=== PATIENT | female | born 2000 | race Two or more races ===

== ENCOUNTER 2023-10-06 10:15 | Outpatient (CLI) | payer MEDICAID, SELFPAY ==
[2023-10-06] VITALS (8 sets, daily range): BP systolic 114–125; BP diastolic 70–84; PULSE 106–121; RESP 16; TEMP 37.4; BMI 36.3
[2023-10-06 10:35] LABS: Bilirubin Urine Negative (Negative); Blood Urine Negative (Negative); Glucose Urine UA Negative (Normal); Ketones Urine Negative (Negative); Leukocyte Esterase Urine 2+ (Negative); Nitrate Urine Negative (Negative); Protein Urine 1+ (Negative); Specific Gravity, Urine 1.016 (1.005-1.030); Urine Appearance Cloudy (CLEAR); Urine Color Yellow (Yellow); pH Urine 7.5 (5-7)
[2023-10-06 10:40] LABS: Bacteria Urine 2+ /hpf; Hyaline Casts Urine 0.81 /lpf; RBC Urine 0-2 /hpf (0-2); WBC Urine 51-100 /hpf (0-5)
[2023-10-06 10:50] LABS: Urine Creatinine 110 mg/dL (28-217)
[2023-10-06 10:52] LABS: UPRO/UCREAT Ratio 0.31 mg/mg CR; Urine Protein Random 34 mg/dL
[2023-10-06 11:01] LABS: Add Urine Culture? No; UA Slide Review UA Slide Review Perf
--- NOTE | 2023-10-06 13:51 | PC.NURSE ---
THIS TRANSMISSION ASSEMBLER TOLD HER THAT SHE COULD GO TO URGENT CARE FOR HER SORE THROAT, EAR ACHE AND SINUS ISSUES IF SHE WANTED.
== END 2023-10-06 12:30 | disposition home or self-care (01) ==
LOC: OPOB 10:20 → OBGYN 10:21
PROVIDERS: Absent Provider Family Medicine; PCP Family Medicine; Visit Provider Family Medicine
DX: O36.8190 Decreased fetal movements, unspecified trimester, not applicable or unspecified (principal); Z3A.00 Weeks of gestation of pregnancy not specified; R51.9 Headache, unspecified; J02.9 Acute pharyngitis, unspecified
CPT/HCPCS: 36415; 59025; 81001; 82570; 84156; 99211

== ENCOUNTER 2023-10-07 12:43 | Outpatient (CLI) | payer MEDICAID, SELFPAY ==
[2023-10-07 13:10] VITALS: BMI 34.5
[2023-10-07 13:32] VITALS: BP 115/82; PULSE 93
[2023-10-07 14:11] VITALS: BP 115/77; PULSE 102
[2023-10-08] VITALS (7 sets, daily range): BP systolic 108–119; BP diastolic 59–74; PULSE 103–110; RESP 16; TEMP 37.2–37.7; O2SAT 96–98
== END 2023-10-07 14:45 | disposition home or self-care (01) ==
LOC: OPOB 12:49 → OBGYN 12:49
PROVIDERS: PCP Family Medicine; Visit Provider Family Medicine
PROC: (CPT 59514; principal; 2023-10-08 00:20)
DX: O26.899 Other specified pregnancy related conditions, unspecified trimester (principal); Z3A.00 Weeks of gestation of pregnancy not specified; R10.9 Unspecified abdominal pain
CPT/HCPCS: 59025; 99211

== ENCOUNTER 2023-10-07 20:08 | Inpatient (IN) | payer MEDICAID, SELFPAY ==
[2023-10-07] VITALS (41 sets, daily range): BP systolic 106–167; BP diastolic 66–100; PULSE 90–136; TEMP 36.5–38.4; O2SAT 88–100; BMI 34.6
[2023-10-07] MEDS: lactated ringers 1,000 ML 999 ML IV ×2 (20:10→22:15)
[2023-10-07] MEDS: lactated ringers 1,000 ML 999 ML (20:10)
[2023-10-07 20:19] LABS: Basophils % 0.2 %; Hematocrit 37.5 % (36-47); Lymphocytes # 1.7 10^3/uL (0.8-4.8); Lymphocytes % 11.5 %; Mean Corpuscular Hemoglobin 27.6 pg (27-33); Mean Corpuscular Volume 86.4 fl (85-98); Mean Platelet Volume 10.2 fL (7.4-10.4); Monocytes # 0.7 10^3/uL (0.2-0.9); Monocytes % 4.9 %; Neutrophils # 12.37 10^3/uL (1.8-7.7); Neutrophils % 82.9 %; Nucleated Red Blood Cells % 0 %; Platelet Count 269 10^3/cmm (157-399); Red Blood Count 4.34 10^6/uL (3.85-5.65); Red Cell Distribution Width 19.1 % (12.1-15.1); White Blood Count 14.92 10^3/uL (3.29-11.43)
--- NOTE | 2023-10-07 20:49 | PM.OPHPUD ---
Labor & Delivery H&P Update Date of Procedure: October 07, 2023 Date H&P Performed: 10/07/23 Admission Diagnosis: IUP at 38 weeks 5 days gestation in active labor Other information: This is a 23-year-old at 38 weeks 5 days gestation who presented to labor and delivery earlier today complaining of losing her mucous plug, vaginal bleeding, and contractions. Nursing reported that on exam she did not have any gross blood in the vaginal vault. Her cervical exam was 1 cm 75% effaced and -3 station. The patient was oumar regularly and was allowed to walk for about an hour. After an hour's time she did not make cervical change so she was discharged home. The patient presented this evening complaining of worsening contractions closer together. They had increased to an 8 out of 10 pain. Upon exam nursing noted a good amount of bloody show with concern for excessive bleeding. Her exam was 4 cm 85% effaced. heart tones have been in the 160s with moderate variability no accelerations and 1 short quick variable deceleration. I presented to examine the patient and the bleeding on her chuk is essentially unchanged from when nursing initially checked her. She is in moderate distress with contractions. Her abdomen seems somewhat tender but not in a consistent location. The patient is very sensitive and also cries out with her blood being drawn. The patient does not describe any loss of fluid, however nursing could not feel amniotic membrane so it is possible that she is ruptured. Anesthesia has been called for an epidural and the patient is being moved to a labor room. I suspect the patient is just in active labor however we will monitor closely for any further signs or symptoms of possible abruption.
--- NOTE | 2023-10-07 20:55 | P.ANESUD_ITS ---
Pre-Anesthetic Update Pre-Anesthetic Assessment: Date of Surgery/Procedure: 10/07/23 Preop Peg gnosis: labor pain Proposed Procedure: labor epidural Any changes to Pre-Anesthetic Assessment?: No Changes from Pre- Anesthetic Assessment: none Last Intake: 1800 on 10/06 Labs Last 48hrs: Short CBC 10/07/23 Range/Units 20:12 WBC 14.92 H (3.29-11.43) 10^ 3/uL Hgb 12.00 (11.27-16.99) g/ dL Hct 37.5 (36-47) % MCV 86.4 (85-98) fl Plt Count 269 (157-399) 10^3/c mm Neut % (Auto) 82.9 % Neut # (Auto) 12.37 H (1.8-7.7) 10^3/u L Blood Bank 10/07/23 20:12 Blood Type Cancelled Rho(D) Type Cancelled Antibody Screen Cancelled Vitals: Temperature 97.7 F 10/07/23 20:02 Pulse Rate 107 H 10/07/23 21:07 Blood Pressure 160/93 10/07/23 21:07 Pulse Oximetry 100 10/07/23 21:04 Exam: Pre-Anes Outpt Exam: alert and oriented x 3 Cardiac Studies: No Data to Display
[2023-10-07] MEDS: ROPivacaine syringe 100 MG/50 ML SYRINGE 10 MG EPIDURAL (21:11)
--- NOTE | 2023-10-07 21:11 | ANES.PROC ---
Anesthesia Procedures Procedure/Date: 10/07/23 Epidural: Time Out Performed: Yes Consents Signed: Procedure Consent Consent: from patient, risks and benefits reviewed and patient agrees to proceed Lumbar Level: L3-L4 Epidural position: sitting Epidural procedure: sterile prep of area, 1% lidocaine to numb the area, 18 g needle, negative for paresthesia passed, neg for paresthesia, test dose given, 1.5% xylocaine 1:200k epi, no systemic response, sterile dressing applied, L.U.D. no apparent complications and 0.2% Ropiavacaine @ mls/hr (10) Additional Comments: SEB at 5, taped at 12 at skin. negative aspiration.
[2023-10-07] MEDS: calcium carbonate 500 mg Chew Tablet 1000 MG PO (22:32)
[2023-10-07] MEDS: dextrose 5%-lactated ringers 1,000 ML 125 ML IV (23:17)
--- NOTE | 2023-10-07 23:56 | PM.OP ---
Operative Report Date of procedure: October 07, 2023 Pre-op diagnosis: Nonreassuring heart tones Maternal fever IUP at 38 weeks 5 days gestation Procedure done: Emergent primary low-transverse section Surgeon: Allyson Waddell MD Estimated blood loss (mL): 400 IV fluids (mL): 1,500 Urine output (mL): 50 Brief History: This is a 23-year-old at 38 weeks 5 days gestation who presented to labor and delivery in active labor. We were hopeful that with a fluid bolus and getting her comfortable with an epidural the heart tones would improve or she would rapidly progress. However she has not made significant cervical change and FHT have deteriorated. They are in the 180s now with late decelerations and mostly minimal variability. Decision was made to proceed with section. Procedure: After informed consent the patient was taken to the OR where she was prepped and draped in normal sterile fashion in dorsal supine position with a left lateral tilt. After adequate epidural anesthesia was verified a fan and skin deal skin incision was made and carried through to the underlying layer of fascia sharply. The fascial incision was then extended laterally using the Mayos. The fascia was grasped with Bethel clamps and the underlying rectus muscles were dissected off taking care to avoid injury to the underlying tissue. The peritoneum was entered bluntly and the incision site was manually stretched. The bladder blade was inserted. The vesicouterine peritoneum was identified and entered sharply using the Metzenbaums. The bladder flap was created digitally. The bladder blade was reinserted. Uterine incision was made in a transverse fashion in the lower uterine segment. Rupture of membranes was performed sharply with clear fluid. The 's head was delivered atraumatically and the rest of the infant was delivered at the same time. There was bulb suction of the mouth and naris at delivery. The cord was clamped and cut. The infant was handed to the waiting pediatric team. Fundal pressure was used to deliver the placenta which was grossly intact and normal to inspection. The uterus was then exteriorized from the abdomen and a dry sponge was used to clear the uterus of clots and debris. Uterine incision was repaired using 0 chromic in a running locked fashion. A second layer of the same suture was used in an imbricating manner. The incision site was hemostatic and the uterus was returned to the abdomen. Irrigation was used to clear the gutters of clots and debris and the incision site was reinspected for hemostasis. The peritoneum was then reapproximated using 4-0 Vicryl in a running fashion. The subfascial tissue was inspected for hemostasis and the fascia was then reapproximated using 0 Vicryl in a running fashion. The subcutaneous tissue was irrigated and any small bleeders were coagulated using the Bovie. Subcutaneous tissue was then reapproximated using 4-0 Vicryl in a running fashion. The skin was then reapproximated using 4-0 Vicryl in a running fashion on a Chance needle. Steri-Strips and a pressure bandage were applied and patient went to recovery in good condition. Sponge instrument and needle counts were correct.
[2023-10-08] VITALS (29 sets, daily range): BP systolic 92–141; BP diastolic 52–76; PULSE 68–136; RESP 16; TEMP 36.7–37.4; O2SAT 96–98; BMI 34.6
[2023-10-08] MEDS: citric acid-sodium citrate 30 mL UDC PO (00:15)
[2023-10-08] MEDS: ceFAZolin 2,000 mg SDV 2000 MG IVP (00:15)
[2023-10-08] MEDS: metoclopramide 5 mg/mL SDV 2 mL 10 MG IVP (00:15)
[2023-10-08] MEDS: ketorolac 30 mg/mL INJ IVP (07:50)
[2023-10-08] MEDS: dextrose 5%-lactated ringers 1,000 ML 125 ML IV (07:50)
[2023-10-08] MEDS: PRENATAL VIT NO.130/IRON/FOLIC 1 EACH TABLET PO (07:57)
[2023-10-08] MEDS: HYDROcodone-acetaminophen 5-325 mg Tablet PO ×3 (07:57→16:57)
[2023-10-08] MEDS: docusate sodium 100 mg Capsule PO ×2 (07:57→16:58)
[2023-10-08] MEDS: ferrous sulfate EC 325 mg Tablet PO ×2 (07:57→16:56)
--- NOTE | 2023-10-08 14:55 | PC.NURSE ---
9300 pt has not been up yet since surgery, patient up to chair with alot of assistance, patient does not want to move due it hurts to bad, i haven't moved since they put me in this bed this director underwriter sales talked with her at length about the importance of getting up and moving around and fluid intake etc. told her that i would be back in 1 hour and we could take a walk.
--- NOTE | 2023-10-08 15:01 | PC.NURSE ---
PT UP TO WALK THIS INDUSTRIAL MACHINERY MECHANIC TOLD HER THAT WE HAD TO DO 20 LAPS TODAY AND WE TALKED ABOUT PUTTING LEE ON BOARD TO SHOW HER HOW MANY SHE HAS AND SO SHE WALKED 2 FULL LAPS AND IT TOOK HER ABOUT 25 MINUTES. SHE WALKED BACK TO ROOM AND HERNANDEZ WAS REMOVED AND SHE WAS TOLD TO WALK 2 LAPS EVERY TIME SHE GOT UP TO BATHROOM.
--- NOTE | 2023-10-08 15:04 | PC.NURSE ---
PT UP IN WATERMAN WALKING, ASKED HER IF SHE HAD VOIDED SINCE HERNANDEZ OUT AND SHE SAID SHE DID EARLIER AND I ASKED HER IF SHE WALKED AFTER AND SHE SAID SHE DID NOT, THIS EYEGLASS FRAMES POLISHER ASKED HER WHAT I HAD TOLDED HER ABOUT WALKING AND SHE REPEATED THAT SHE IS SUPPOSED TO WALK 2 LAPS AFTER VOIDING AND I REMINDED HER THAT SHE HAS 20 LAPS TO DO. PT VOICED UNDERSTANDING.
[2023-10-08 15:08] LABS: Hematocrit 25.7 % (36-47); Mean Corpuscular HGB Conc 31.9 g/dL (30-55); Mean Corpuscular Hemoglobin 28.7 pg (27-33); Mean Corpuscular Volume 89.9 fl (85-98); Mean Platelet Volume 10.5 fL (7.4-10.4); Platelet Count 197 10^3/cmm (157-399); Red Blood Count 2.86 10^6/uL (3.85-5.65); Red Cell Distribution Width 19.2 % (12.1-15.1); White Blood Count 14.69 10^3/uL (3.29-11.43)
--- NOTE | 2023-10-08 20:18 | PC.NURSE ---
IV IN RIGHT AC SPACE WAS OUT COMPETLY UNDER OPSITE, NO BLEEDING, IV REMOVED AND 2X2 APPLIED WITH BANDAID AND RESTARTED IN RIGHT FOREARM WITH #20
[2023-10-08] MEDS: ibuprofen 800 mg tablet PO (22:12)
[2023-10-09] MEDS: HYDROcodone-acetaminophen 5-325 mg Tablet PO ×3 (03:01→18:19)
[2023-10-09 04:00] VITALS: BP 100/60; PULSE 90; RESP 16; TEMP 36.6
[2023-10-09] MEDS: PRENATAL VIT NO.130/IRON/FOLIC 1 EACH TABLET PO (08:29)
[2023-10-09] MEDS: docusate sodium 100 mg Capsule PO ×2 (08:29→18:20)
[2023-10-09] MEDS: ibuprofen 800 mg tablet PO ×3 (08:30→21:56)
[2023-10-09 08:40] VITALS: BP 104/71; PULSE 87; TEMP 36.7
--- NOTE | 2023-10-09 11:48 | P.PN_ITS ---
Subjective 2 Subjective: Postop day #1 doing well. Her pain is controlled with oral medication. She has been up and ambulating. She is tolerating a regular diet. Vitals/I&O/Wt Last Vital Signs Temp 98.0 F 10/09/23 08:40 Pulse 87 10/09/23 08:40 Resp 16 10/09/23 04:00 BP 104/71 10/09/23 08:40 Pulse Ox 98 10/08/23 12:26 O2 Del Method Room Air 10/09/23 08:40 10/08/23 10/09/23 10/09/23 22:59 06:59 14:59 Intake Total 800 / 1400 Balance 800 / 600 Weight last 48 hrs Weight 77.791 kg Weight 77.791 kg Weight 77.791 kg Physical Exam 2 Narrative: Alert and oriented, sitting up in bed with the infant, heart regular rate and rhythm, lungs clear to auscultation bilaterally, abdomen is soft with appropriate postoperative tenderness, incision is clean dry and intact with Steri-Strips in place, she does have 1+ edema but no calf tenderness Urinary Catheter Management: Jorgensen Latex: Cath Placed During This Visit: yes Urinary Catheter Date of Insertion: 10/07/23 Urinary Catheter Time of Insertion: 21:45 Data 10/08/23 14:40 A&P Assessment and plan (1) Status post emergency section: Continue routine postoperative and care. If she is doing well tomorrow likely discharge home. (2) Acute blood loss anemia: She will be discharged home on iron supplementation. Her bleeding has improved today. Attestations 2 Medical Necessity Statement*: Routine postoperative and care Coding Level of Care Code Acute Code for Chg Fwd Diagnoses Status post emergency section Z98.891 Acute blood loss anemia D62
[2023-10-09 16:00] VITALS: BP 101/67; PULSE 80; TEMP 36.6
[2023-10-09 22:06] VITALS: BP 108/71; PULSE 80; RESP 16; TEMP 36.8; O2SAT 98
[2023-10-10 04:20] VITALS: BP 106/69; PULSE 79; RESP 16; TEMP 36.8
[2023-10-10] MEDS: ibuprofen 800 mg tablet PO (08:16)
[2023-10-10] MEDS: PRENATAL VIT NO.130/IRON/FOLIC 1 EACH TABLET PO (08:16)
[2023-10-10] MEDS: ferrous sulfate EC 325 mg Tablet PO (08:16)
[2023-10-10] MEDS: docusate sodium 100 mg Capsule PO (08:16)
[2023-10-10 10:15] VITALS: BP 120/80; PULSE 82; RESP 16; TEMP 36.9; O2SAT 99
[2023-10-10] MEDS: HYDROcodone-acetaminophen 5-325 mg Tablet PO (10:48)
--- NOTE | 2023-10-10 12:23 | P.DS_ITS ---
Discharge Providers Date of Admission: 10/07/23 20:08 Date of Discharge: October 10, 2023 Attending Provider at Admission: Allyson Waddell MD Attending Provider at Discharge: Allyson Waddell MD Primary Care Provider: Allyson Waddell MD Diagnoses at Discharge Discharge Diagnosis (1) Status post emergency section: Status: Acute (2) Acute blood loss anemia: Status: Acute Reason for Visit Reason for Visit: CTX Hospital Course Hospital Course This is a 23-year-old G1 now P1 who was admitted in active labor. She ended up having an emergent section secondary to nonreassuring heart tones. She has done well postoperatively. She is ambulating, tolerating a regular diet, and has good pain control with oral medications. She is being discharged home today. Physical Exam Narrative: Alert and oriented, sitting up in bed eating lunch with the , heart regular rate and rhythm, lungs clear to auscultation bilaterally, abdomen is soft and nontender, fundus is firm, incision is clean dry and intact with Steri- Strips in place, extremities have 1+ edema but no calf tenderness Urinary Catheter Management: Jorgensen Latex: Cath Placed During This Visit: yes Urinary Catheter Date of Insertion: 10/07/23 Urinary Catheter Time of Insertion: 21:45 Discharge Data Studies Completed and Pending Laboratory Results WBC 14.69 10^3/uL (3.29-11.43) H 10/08/23 14:40 RBC 2.86 10^6/uL (3.85-5.65) L 10/08/23 14:40 Hgb 8.20 g/dL (11.27-16.99) L D 10/08/23 14:40 Hct 25.7 % (36-47) L D 10/08/23 14:40 MCV 89.9 fl (85-98) 10/08/23 14:40 MCH 28.7 pg (27-33) 10/08/23 14:40 MCHC 31.9 g/dL (30-55) 10/08/23 14:40 RDW 19.2 % (12.1-15.1) H 10/08/23 14:40 Plt Count 197 10^3/cmm (157-399) 10/08/23 14:40 MPV 10.5 fL (7.4-10.4) H 10/08/23 14:40 Neut % (Auto) 82.9 % 10/07/23 20:12 Lymph % (Auto) 11.5 % 10/07/23 20:12 [place] % (Auto) 4.9 % 10/07/23 20:12 Eos % (Auto) 0.0 % 10/07/23 20:12 Baso % (Auto) 0.2 % 10/07/23 20:12 Neut # (Auto) 12.37 10^3/uL (1.8-7.7) H 10/07/23 20:12 Lymph # (Auto) 1.7 10^3/uL (0.8-4.8) 10/07/23 20:12 [place] # (Auto) 0.7 10^3/uL (0.2-0.9) 10/07/23 20:12 Eos # (Auto) 0.0 10^3/uL (0.0-0.8) 10/07/23 20:12 Baso # (Auto) 0.0 10^3/uL (0.0-0.1) 10/07/23 20:12 Nucleated RBC % (auto) 0 % 10/07/23 20:12 Nucleated RBCs # 0.0 /100WBC 10/07/23 20:12 Blood Type A Positive 10/07/23 20:40 Rho(D) Type Rh positive 10/07/23 20:40 Antibody Screen Negative 10/07/23 20:40 Vitals Last Vital Signs Temp 98.3 F 10/10/23 04:20 Pulse 79 10/10/23 04:20 Resp 16 10/10/23 04:20 BP 106/69 10/10/23 04:20 Pulse Ox 98 10/09/23 22:06 O2 Del Method Room Air 10/09/23 22:06 Discharge Plan Discharge Patient Disposition: Home Condition: Stable Prescriptions: New ibuprofen 800 mg Tablet 800 mg PO TID PRN (Reason: Abdominal Discomfort) Qty: 40 0RF docusate sodium 100 mg Capsule 100 mg PO BID Qty: 60 0RF ferrous sulfate 325 mg (65 mg iron) Tablet,Delayed Release (Dr/Ec) 325 mg PO DAILY Qty: 30 1RF hydrocodone-acetaminophen 5-325 mg Tablet 1 - 2 tab PO Q4H PRN (Reason: Moderate To Severe Pain) Qty: 15 0RF Discontinued 10-400 mg-mcg Capsule 1 cap PO DAILY Discharge Orders: Discharge Order (Routine); Ordered 10/10/23 Ordered By: Allyson Waddell Referrals: Allyson Waddell MD [Primary Care Provider] - 1-3 days (saturday) Discharge Diet: Usual diet Discharge Activity: Limit activity as instructed Patient Instructions: Depression (DC), Bleeding (DC), Preeclampsia and Eclampsia After Delivery (GEN), OB - Slade/Nadira, OB Discharge Report, OB Food/Drug Interaction Guide, OB Care at Home, Opioid Safety, Abnormal Bleeding Discharge Attestations Time Spent in Discharge Care*: less than 30 min Quality Metrics Clinical Quality Measures [ No reported AMI, CVA or VTE this stay] Coding Level of Care Code Acute Code for Chg Fwd Diagnoses Status post emergency section Z98.891 Acute blood loss anemia D62
[2023-10-10 13:30] VITALS: BP 128/85; PULSE 92; RESP 18; TEMP 36.8; O2SAT 100
[2023-10-10 13:45] VITALS: BP 128/85; PULSE 92; RESP 18; TEMP 36.8; O2SAT 100
--- NOTE | 2023-10-10 14:27 | ANE.PACU2 ---
Inpatient post-anesthesia follow up: Airway intact: Yes Vital signs: Temperature 98.4 F Pulse Rate 82 Respiratory Rate 16 Blood Pressure 120/80 Pulse Oximetry 99 Oxygen Delivery Me thod Room Air Oxygen Flow Rate Fraction of Inspir ed Oxygen Hydration adequate: Yes Nausea and vomiting: No Pain level: 1 Mental status: Baseline Epidural Start/End: Epidural Start Date: 10/07/23 Epidural Start Time: 20:55 Epidural End Date: 10/08/23 Epidural End Time: 01:25
== END 2023-10-10 13:50 | disposition home or self-care (01) | DRG 787 ==
LOC: OPOB 20:09 → OBGYN 20:09
PROVIDERS: Admitting Provider Family Medicine; PCP Family Medicine; Visit Provider Family Medicine
PROC: (CPT 59514; principal; 2023-10-08 00:20)
DX: O75.2 Pyrexia during labor, not elsewhere classified (principal); D62 Acute posthemorrhagic anemia; O76 Abnormality in fetal heart rate and rhythm complicating labor and delivery; Z3A.38 38 weeks gestation of pregnancy; Z37.0 Single live birth; O90.81 Anemia of the puerperium
CPT/HCPCS: 36415; 51702; 59025; 59409; 85025; 85027; 86850; 86900; 96374; 96376; 99211; J0690; J1885; J2250; J2405; J2765; J2795; J3010; J7030; J7120; J7121

== ENCOUNTER 2023-10-14 23:55 | Emergency (ER) | payer MEDICAID, SELFPAY ==
[2023-10-15 00:20] VITALS: BP 126/85; PULSE 128; RESP 14; TEMP 37.3; O2SAT 99
[2023-10-15 00:24] VITALS: BP 127/81; RESP 16; O2SAT 98
[2023-10-15] MEDS: amoxicillin-clav 875-125 mg Tablet 1 TAB PO (00:56)
[2023-10-15 01:08] VITALS: BP 105/66; PULSE 102; O2SAT 100
--- NOTE | 2023-10-15 02:12 | W.ED.WOUNDLC ---
HPI - Wound/Laceration General: Chief Complaint: Wound/Laceration Stated Complaint: bleeding post preg Time Seen by Provider: 10/15/23 00:25 History of Present Illness: This patient is a 23-year-old female who presents to the emergency department stating that she has noticed some drainage from a incision. Patient had a 6 days ago. She states she saw her printing services coordinator in the clinic today for follow-up. Evidently she had some swelling on the right side of the incision but no drainage at that time. Tonight patient noticed quite a bit of bloody purulent drainage. No fever. She contacted her printing services coordinator who recommended she come in for evaluation. She has not had a fever. Related Data Previous Rx's Medication Instructions Recorded docusate sodium 100 mg capsule 100 mg PO BID #60 caps 10/10/23 ferrous sulfate 325 mg (65 mg 325 mg PO DAILY #30 tabs 10/10/23 iron) tablet,delayed release hydrocodone 5 mg-acetaminophen 325 1 - 2 tab PO Q4H PRN Moderate To 10/10/23 mg tablet Severe Pain #15 tabs ibuprofen 800 mg tablet 800 mg PO TID PRN Abdominal 10/10/23 Discomfort #40 tabs amoxicillin 875 mg-potassium 1 tab PO BID #20 tabs 10/15/23 clavulanate 125 mg tablet Allergies Allergy/AdvReac Type Severity Reaction Status Date / Time No Known Allergies Allergy Verified 10/15/23 00:24 Review of Systems General: Reports: 10 or more systems reviewed and unremarkable except in HPI and below Skin/Breast: Reports: surgical incision (Purulent drainage from incision) Physical Exam Const: COMMON NORMALS: no acute distress, patient oriented x3 and no limitations GENERAL APPEARANCE: cooperative and comfortable HENMT: COMMON NORMALS: normocephalic, atraumatic, Normal nasal mucous membranes and turbinates present, moist oral mucous membranes and oropharynx normal HEAD & SCALP: normal to inspection, normocephalic and atraumatic FACE & SINUS: normal facial exam NOSE: Normal nasal mucous membranes and turbinates present Eye: COMMON NORMALS: Equal, round and reactive pupils present, EOMs intact bilaterally and conjunctivae normal GENERAL EYE: appearance normal, both eyes and all related structures CONJUNCTIVA: Yes conjunctivae normal PUPIL: Yes Equal, round and reactive pupils present Neck/C-Spine: COMMON NORMALS: supple and no JVD Chest: COMMONS NORMALS: normal inspection of the chest Resp: COMMON NORMALS: normal respiratory effort and clear to auscultation bilaterally AUSCULTATION: clear to auscultation bilaterally Cardio: COMMON NORMALS: no JVD, regular rate, regular rhythm, No gallops present (Cardio), No murmurs present (Cardio) and No rub (Cardio) RATE: regular rate RHYTHM: regular rhythm GI: COMMON NORMALS: Normal to inspection, nondistended, normoactive bowel sounds present, Soft to palpation and non-tender AUSCULTATION: Yes normoactive bowel sounds PALPATION: Yes Soft to palpation : COMMON NORMALS: Yes no CVA tenderness BLADDER/KIDNEY EXAM: Yes no CVA tenderness Back/Pelvis: COMMON NORMALS: no CVA tenderness and thoracic and lumbar spine normal to inspection Extremity: COMMON NORMALS: normal to inspection Neuro: COMMON NORMALS: patient oriented x3 and CN's II-XII intact bilaterally Psych: COMMON NORMALS: mental status grossly normal, Normal thought process present and cooperative THOUGHT PROCESS: Normal thought process present Skin: COMMON NORMALS: turgor normal and no jaundice GENERAL SKIN EXAM: turgor normal, erythema and fluctuance WOUNDS: Yes surgical site (Right side of surgical incision) Details: drainage and malodorous Course Vital Signs: Vital signs: Vital Signs Temperature 99.2 F 10/15/23 00:20 Pulse Rate 102 H 10/15/23 01:08 Respiratory Rate 16 10/15/23 00:24 Blood Pressure 105/66 10/15/23 01:08 Pulse Oximetry 100 10/15/23 01:08 Oxygen Delivery Me thod Room Air 10/15/23 00:24 MDM - Wound/Laceration Medical Decision Making Patient was placed on Augmentin and given her first dose in the emergency department. I recommended she follow-up with her printing services coordinator as soon as possible. It is draining well now but they may choose to open this up. She was discharged in stable condition. No radiology studies performed this visit Discharge Plan Discharge Patient Disposition: Home Clinical Impression: Surgical wound infection Condition: Stable Prescriptions: New amoxicillin-pot clavulanate 875-125 mg tablet 1 tab PO BID Qty: 20 0RF No Action ibuprofen 800 mg Tablet 800 mg PO TID PRN (Reason: Abdominal Discomfort) Qty: 40 0RF docusate sodium 100 mg Capsule 100 mg PO BID Qty: 60 0RF ferrous sulfate 325 mg (65 mg iron) Tablet,Delayed Release (Dr/Ec) 325 mg PO DAILY Qty: 30 1RF hydrocodone-acetaminophen 5-325 mg Tablet 1 - 2 tab PO Q4H PRN (Reason: Moderate To Severe Pain) Qty: 15 0RF Discharge Orders: Discharge ED (Routine); Ordered 10/15/23 Ordered By: Jaskaran Amador Referrals: Allyson Waddell MD [Primary Care Provider] - Coding Level of Care Code ED Spun Paste Machine Operator for Devi Pinzon
== END 2023-10-15 01:10 | disposition home or self-care (01) ==
PROVIDERS: Emergency Provider Emergency Medicine; PCP Family Medicine
DX: O86.00 Infection of obstetric surgical wound, unspecified (principal)
CPT/HCPCS: 99283